=== PATIENT | male | born 1945 | race Hispanic/Latino ===

== ENCOUNTER 2019-07-23 11:40 | Inpatient (IN) | payer MEDICARE, OTHER ==
[~2019-07-23] VITALS: Ht 182.9 cm; Wt 95.8 kg
[2019-07-23 12:06] LABS: BASOPHILS % (AUTO) 0.5 % (0.0-5.0); EOSINOPHILS % (AUTO) 0.6 % (0.0-8.0); HEMATOCRIT 48.3 % (42-54); LYMPHOCYTES % (AUTO) 24.2 % (21.0-51.0); MEAN CORPUSCULAR HGB CONC 33.3 g/dL (32.0-36.0); MONOCYTES % (AUTO) 4.9 % (3.0-13.0); NEUTROPHILS % (AUTO) 69.5 % (40.0-77.0); PLATELET COUNT (AUTO) 188 K/uL (130-400); RED BLOOD CELL COUNT(AUTO) 5.55 MIL/uL (4.50-6.20); RED CELL DISTRIBUTION WIDTH 13.8 % (11.0-15.5); WHITE BLOOD COUNT (AUTO) 7.7 K/uL (4.8-10.8)
[2019-07-23 12:14] LABS: CREATININE 1.3 mg/dL (0.5-1.5)
[2019-07-23 12:15] LABS: PARTIAL THROMBOPLASTIN TIME 29.6 SEC (26.3-35.5); PROTHROMBIN TIME 10.8 SEC (9.6-11.6)
[2019-07-23 12:19] LABS: ALBUMIN 3.7 g/dL (3.5-5.0); BILIRUBIN,TOTAL 0.4 mg/dL (0.2-1.0); TOTAL PROTEIN, SERUM 7.3 g/dL (6.0-8.3)
[2019-07-23 13:53] LABS: APPEARANCE,URINE CLEAR (CLEAR); BILIRUBIN,URINE NEGATIVE (NEGATIVE); COLOR,URINE YELLOW (YELLOW); GLUCOSE, URINE (UA) 100 mg/dL (NEGATIVE); KETONES,URINE NEGATIVE (NEGATIVE); LEUKOCYTE ESTERASE ,URINE NEGATIVE (NEGATIVE); NITRATE,URINE NEGATIVE (NEGATIVE); OCCULT BLOOD,URINE NEGATIVE (NEGATIVE); PH,URINE 7.5 (5.0-8.0); PROTEIN,URINE NEGATIVE (NEGATIVE); UROBILINOGEN,URINE 0.2 mg/dL (0.2-1.0)
[2019-07-23 14:19] LABS: BACTERIA,URINE Rare /HPF (None Seen); RBC,URINE None Seen /HPF (0-1); WBC,URINE None Seen /HPF (0-1)
[2019-07-23 14:20] LABS: SQUAMOUS EPITHELIAL CELL,UR 0-2 /HPF (0-2)
[2019-07-23 14:52] LABS: AMPHET/METH SCREEN,URINE NEGATIVE (NEGATIVE); BARBITURATE SCREEN, URINE NEGATIVE (NEGATIVE); BENZODIAZEPINES SCREEN,URINE NEGATIVE (NEGATIVE); CANNABINOID SCREEN,URINE NEGATIVE (NEGATIVE); COCAINE SCREEN,URINE NEGATIVE (NEGATIVE); OPIATE SCREEN,URINE NEGATIVE (NEGATIVE); PHENCYCLIDINE SCREEN,URINE NEGATIVE (NEGATIVE)
[2019-07-23] MEDS ORDERED: HYDROCODONE/ACETAMINOPHEN 5/325 MG TAB PO PRN (15:45)
[2019-07-23] MEDS ORDERED: LACTULOSE 20 GM/30 ML UDCUP PO PRN (15:45)
[2019-07-23] MEDS ORDERED: GUAIFENESIN-DM 200/20 MG 10 ML PO PRN (15:45)
[2019-07-23] MEDS ORDERED: ACETAMINOPHEN 325 MG TAB PO PRN ×2 (15:45)
[2019-07-23] MEDS ORDERED: METOPROLOL TARTRATE 1 MG/ML 5ML VIAL IV PRN (15:45)
[2019-07-23] MEDS ORDERED: ASPIRIN 81MG TAB.CHEW ONE (16:13)
[2019-07-23] MEDS ORDERED: LISI-613 PO (18:40)
[2019-07-23] MEDS ORDERED: SIMV-46 PO (18:40)
[2019-07-23] MEDS ORDERED: SERT25TA PO (18:40)
[2019-07-23] MEDS ORDERED: METO-408 PO (18:40)
[2019-07-23 18:48] VITALS: BP 164/81
[2019-07-23 20:12] VITALS: BP 166/78
[2019-07-23] MEDS: FAMOTIDINE 20MG TAB 20 MG TAB PO SCH (20:25)
[2019-07-23] MEDS ORDERED: ATORVASTATIN CALCIUM 40 MG TABLET PO SCH (21:00)
[2019-07-24 00:12] VITALS: BP 161/83
[2019-07-24] MEDS: HYDRALAZINE HCL 20 MG/ML VIAL IV PRN ×2 (00:36→07:59)
[2019-07-24 04:16] VITALS: BP 138/81
[2019-07-24 05:21] LABS: BASOPHILS % (AUTO) 0.4 % (0.0-5.0); EOSINOPHILS % (AUTO) 1.5 % (0.0-8.0); LYMPHOCYTES % (AUTO) 23.9 % (21.0-51.0); MEAN CORPUSCULAR HEMOGLOBIN 29.2 pg (27.0-33.0); MEAN CORPUSCULAR HGB CONC 33.8 g/dL (32.0-36.0); MEAN CORPUSCULAR VOLUME 86.5 fL (79-99); MONOCYTES % (AUTO) 8.3 % (3.0-13.0); NEUTROPHILS % (AUTO) 65.6 % (40.0-77.0); PLATELET COUNT (AUTO) 179 K/uL (130-400); RED BLOOD CELL COUNT(AUTO) 5.55 MIL/uL (4.50-6.20); WHITE BLOOD COUNT (AUTO) 7.3 K/uL (4.8-10.8)
[2019-07-24 05:54] LABS: CREATININE 1.3 mg/dL (0.5-1.5); POTASSIUM 4.3 mmol/L (3.5-5.1)
[2019-07-24 08:00] VITALS: BP 188/79
[2019-07-24] MEDS: FAMOTIDINE 20MG TAB 20 MG TAB PO SCH (08:00)
[2019-07-24] MEDS ORDERED: ATORVASTATIN CALCIUM 40 MG TABLET PO SCH (09:00)
[2019-07-24] MEDS ORDERED: ASPIRIN 81MG TAB.CHEW PO SCH (09:00)
[2019-07-24] MEDS ORDERED: LISINOPRIL 20 MG TABLET ONE (11:13)
[2019-07-24] MEDS ORDERED: LISINOPRIL 20 MG TABLET PO SCH ×2 (11:15→21:00)
--- NOTE | 2019-07-24 11:15 | NUR ---
ONE TIME DOSE OF PRINIVIL 20MG GIVEN FROM STOCK. NEXT SCHEDULED DOSE DUE TONIGHT
[2019-07-24 11:45] VITALS: BP 157/96
--- NOTE | 2019-07-24 11:45 | NUR ---
TO RAD. DEPT NOW FOR MRI/MRA OF BRAIN MRI OF LUMBAR HAS BEEN ADDED. ALSO PENDING 2-ECHO
[2019-07-24] MEDS ORDERED: METOPROLOL SUCCINATE 50 MG TAB.SR.24H PO SCH (11:50)
--- NOTE | 2019-07-24 12:54 | NUR ---
BACK FROM [facility]. DEPT.
--- NOTE | 2019-07-24 14:38 | NUR ---
IMAGING STUDIES DONE SHOW ACUTE LACUNAR IN LEFT PARIETAL REGION. WILL .TRANSFER TO [facility] [place] [facility]KE UN[facility] FOR HIGHER LEVEL OF CARE
[2019-07-24 16:00] VITALS: BP 177/89
--- NOTE | 2019-07-24 16:40 | NUR ---
PT. WILL BE TRANSFERRED TO [facility] [place]. REPORT CALLED IN AND TALKED TO GETACHEW SMITH. H.S. HAS CALLED AMBULANCE.PT STATES HE HAS ALREADY CALLED HIS FAMILY.COPY OF CHART AND DISC WITH IMAGING ALSO MADE AVAIL.
--- NOTE | 2019-07-24 16:43 | NUR ---
WILL LEAVE SALINE LOCK IN PLACE.
--- NOTE | 2019-07-24 17:45 | NUR ---
EMS HERE NOW. PT. TRANSFERRED TO [facility] THERE IS NO AVAIL BEDS IN THE NEURO UNIT. DISCHARGE INST. FROM HERE GIVEN TO PT.
[2019-07-24] MEDS ORDERED: SERTRALINE HCL 50 MG TABLET PO SCH (21:00)
[2019-07-24] MEDS ORDERED: SIMVASTATIN 20 MG TABLET PO SCH (21:00)
== END 2019-07-24 17:45 | disposition short-term general hospital (02) | DRG 66 ==
LOC: EDH 11:40 → OBSVTOIN 14:56 → EDHIP 14:56 → 3BH 17:25
PROVIDERS: ADMIT Internal Medicine; ATTEND Internal Medicine
DX: I63.81 Other cerebral infarction due to occlusion or stenosis of small artery (principal); E11.9 Type 2 diabetes mellitus without complications; E78.5 Hyperlipidemia, unspecified; I10 Essential (primary) hypertension; Z85.820 Personal history of malignant melanoma of skin; Z87.891 Personal history of nicotine dependence; Z79.899 Other long term (current) drug therapy; R29.700 NIHSS score 0
CPT/HCPCS: 36415; 70450; 70544; 70547; 70551; 71045; 72148; 80048; 80053; 80061; 80305; 81001; 82550; 82948; 83036; 83721; 83735; 84484; 85025; 85610; 85730; 93005; 93306; 93356; G0378; J0360